=== PATIENT | male | born 1940 | race Caucasian/White ===

== ENCOUNTER 2018-09-24 15:25 | Emergency (ER) | payer MEDICARE, OTHER ==
[~2018-09-24] VITALS: Ht 175.3 cm; Wt 89.8 kg
[2018-09-24] MEDS ORDERED: SPIRIVA18 MCG INH (15:42)
[2018-09-24] MEDS ORDERED: PROAIR HFA8.5 GM INH (15:42)
[2018-09-24] MEDS ORDERED: SYMBICORT 16010.2 GM INH (15:43)
[2018-09-24] MEDS ORDERED: MELOXICAM7.5 MG PO (15:45)
[2018-09-24] MEDS ORDERED: PREDNISONE20 MG PO (16:32)
== END 2018-09-24 16:59 | disposition home or self-care (01) ==
LOC: ED 15:25
DX: J44.1 Chronic obstructive pulmonary disease with (acute) exacerbation (principal); I10 Essential (primary) hypertension; M25.512 Pain in left shoulder; Z87.891 Personal history of nicotine dependence; Z79.899 Other long term (current) drug therapy; W19.XXXA Unspecified fall, initial encounter
CPT/HCPCS: 71045; 94640; 94664; 99284-25; J7512